=== PATIENT | female | born 1935 | race American Indian/Alaskan Native ===

== ENCOUNTER 2018-04-06 21:47 | Inpatient (IN) | payer MEDICARE ==
[2018-04-06 21:48] VITALS: BMI 33.7
[2018-04-06 22:02] VITALS: RESP 20
--- NOTE | 2018-04-06 22:28 | C.PDOC ---
History Of Present Illness 82 year old female with PMHx of Colon CA, CVA presents to the ED c/o intermittent abdominal pain associated with watery diarrhea for the past 2-3 weeks. Patient reports she had surgery for her colon cancer on November. Patient states she saw her PMD on February, reports that after that visit she has been having urinary incontinence. Patient states that every time she moves urine comes out. Patient denies fever, chills, nausea, vomit, dysuria, back pain, rash, weakness, numbness. Time Seen by Provider: 04/06/18 22:01 Chief Complaint (Nursing): Abdominal Pain History Per: Patient History/Exam Limitations: no limitations Onset/Duration Of Symptoms: Days, Intermittent Episodes Current Symptoms Are (Timing): Still Present Location Of Pain/Discomfort: Diffuse Quality Of Discomfort: "Pain" Associated Symptoms: Diarrhea, Urinary Symptoms. denies: Chills, Vomiting Recent travel outside of the [place]: No Additional History Per: Patient Abnormal Vaginal Bleeding: No Past Medical History Reviewed: Historical Data, Nursing Documentation, Vital Signs Vital Signs: Last Vital Signs Temp 983 F H 04/06/18 21:51 Pulse 63 04/06/18 21:51 Resp 20 04/06/18 21:51 BP 146/80 04/06/18 21:51 Pulse Ox 98 04/06/18 21:51 - Medical History PMH: CVA, Diabetes Other PMH: Colon CA Surgical History: No Surg Hx Denies: Pacemaker - [facility] Procedures CORONAR ARTERIOGR-2 CATH (10/23/13) LEFT HEART CARDIAC CATH (10/23/13) LT HEART ANGIOCARDIOGRAM (10/23/13) Family History: States: Unknown Family Hx - Social History Hx Tobacco Use: No Hx Alcohol Use: No Hx Substance Use: No - Immunization History Hx Tetanus Toxoid Vaccination: No Hx Influenza Vaccination: No Hx Pneumococcal Vaccination: No Review Of Systems Constitutional: Negative for: Fever, Chills Cardiovascular: Negative for: Chest Pain, Palpitations Respiratory: Negative for: Cough, Shortness of Breath Gastrointestinal: Positive for: Abdominal Pain, Diarrhea. Negative for: Nausea, Vomiting Genitourinary: Positive for: Incontinence Musculoskeletal: Negative for: Back Pain Skin: Negative for: Rash Neurological: Negative for: Weakness, Numbness Physical Exam - Physical Exam Appears: Non-toxic, No Acute Distress Skin: Normal Color, Warm, Dry Head: Atraumatic, Normacephalic Eye(s): bilateral: Normal Inspection Oral Mucosa: Moist Neck: Normal ROM, Supple Chest: Symmetrical Cardiovascular: Rhythm Regular Respiratory: Normal Breath Sounds, No Rales, No Rhonchi, No Wheezing Gastrointestinal/Abdominal: Soft, No Tenderness, No Guarding, No Rebound, Other (healed scar ) Extremity: Normal ROM, No Tenderness, No Swelling Neurological/Psych: Oriented x3, Normal Speech, Normal Cognition, Normal Motor, Normal Sensation Gait: Steady ED Course And Treatment - Laboratory Results Result Diagrams: 04/06/18 22:45 04/06/18 22:45 ECG: Interpreted By Me, Viewed By Me Interpretation Of ECG: Paced Rate From EC (BPM) O2 Sat by Pulse Oximetry: 98 (ON RA) Pulse Ox Interpretation: Normal - CT Scan/US CT abd/pelvis Other Rad Studies (CT/US): Read By Radiologist, Radiology Report Reviewed CT/US Interpretation: EXAM: CT Abdomen and Pelvis without IV contrast. CLINICAL HISTORY: Pancreaititis, ho colon ca. TECHNIQUE: Axial computed tomography images of the abdomen and pelvis without intravenous contrast. 0.00 mGy-cm. CONTRAST: Without. COMPARISON: None provided. FINDINGS: LUNG BASES: The visualized lung bases are clear. LIVER: There are a few subcentimeter hypodensities in both lobes of liver, which are too small to adequately characterize. GALLBLADDER AND BILE DUCTS: The gallbladder is predominantly decompressed. PANCREAS: There is minimal stranding near the distal body and tail of the pancreas which could represent a mild acute pancreatitis. Please correlate clinically. SPLEEN: Unremarkable. ADRENAL GLANDS: Unremarkable. KIDNEYS, URETERS, AND BLADDER: Small left midpole renal cyst. There is mild fullness of the left renal collecting system and there is slight hyperdensity of the wall of the proximal left ureter which is also somewhat dilated although tapers more distally. Please correlate for the possibility of any urinary tract infectious, inflammatory or neoplastic process. The bladder is predominately decompressed however appears quite thickwalled. This measures up to 11 mm in thickness. Please correlate for the possibility of infectious, inflammatory or neoplastic process of bladder, or chronic urinary outflow obstruction. STOMACH AND BOWEL: Tiny hiatal hernia. There is evidence for partial prior re section of the right colon with anastomosis in the right lower quadrant appears intact. Constipation is noted in the remaining colon. No evidence for bowel obstruction. APPENDIX: No evidence of acute appendicitis on CT examination. PERITONEUM: No free fluid. No free air. LYMPH NODES: No lymphadenopathy is evident. REPRODUCTIVE: The uterus is atrophic or absent. VASCULATURE: There is coronary artery calcification. There is calcification of the aortic root. Visualized thoracic aorta is tortuous and mildly atherosclerotic. Moderately severe atherosclerotic change of the abdominal aorta and in particular the iliac arteries and branches. BONES: Moderate to severe multilevel degenerative spine changes are present. MISCELLANEOUS: Pacemaker leads are seen extending to right atrium and right ventricle. There are postsurgical changes of running craniocaudally at the anterior abdomen midline. Mild to moderate degenerative changes of both hips and pelvis are noted. IMPRESSION: 1. There is minimal stranding near the distal body and tail of the pancreas which could represent a mild acute pancreatitis. Please correlate clinically. 2. There is mild fullness of the left renal collecting system and there is slight hyperdensity of the wall of the proximal left ureter which is also somewhat dilated although tapers more distally. Please correlate for the possibility of any urinary tract infectious, inflammatory or neoplastic process. 3. The bladder is predominately decompressed however appears quite thickwalled. This measures up to 11 mm in thickness. Please correlate for the possibility of infectious, inflammatory or neoplastic process of bladder, or chronic urinary outflow obstruction. 4. There is evidence for partial prior resection of the right colon with anastomosis in the right lower quadrant appears intact. 5. Constipation is noted in the remaining colon. 6. Additional findings as above. . Electronically signed on Apr 07, 2018 12:20:27 AM EST by: Edwar Fraser M.D., JUNG Certified By ABR & CBCCT. Fellowship Trained MRI and CT Specialist Progress - Re-Evaluation Re-evaluation Note: 04/06/18 23:17 D/W DR GUALLPA AWARE OF ER FINDINGS. PENDING CT 04/06/18 23:34 D/W MED RESIDENT WILL EVAL. WILL FU CT RESULTS - Data Reviewed Data Reviewed: Lab, Diagnostic imaging, EKG, Old records Medical Decision Making Medical Decision Making: Plan: * CT abd/pelvis * Labs * UA Disposition Counseled Patient/Family Regarding: Studies Performed, Diagnosis - Disposition Disposition: HOSPITALIZED Disposition Time: 23:53 Condition: STABLE - POA Present On Arrival: None - Clinical Impression Clinical Impression: Abdominal pain, Pancreatitis, UTI (urinary tract infection) - Scribe Statement The provider has reviewed the documentation as recorded by the Scribe Ac Norris All medical record entries made by the Scribe were at my direction and personally dictated by me. I have reviewed the chart and agree that the record accurately reflects my personal performance of the history, physical exam, medical decision making, and the department course for this patient. I have also personally directed, reviewed, and agree with the discharge instructions and disposition.
[2018-04-06 22:47] LABS: BASO % 0.4 % (0.0-2.0); EOS % 0.7 % (0.0-4.0); HEMOGLOBIN 10.4 g/dL (11.0-16.0); MEAN CELL VOLUME 77.2 fL (81.0-99.0); MEAN CORPUSCULAR HEMOGLOBIN 25.2 pg (27.0-31.0); MEAN CORPUSCULAR HGB CONC 32.6 g/dL (33.0-37.0); MEAN PLATELET VOLUME 7.4 fL (7.2-11.7); MONO # 0.5 K/uL (0.0-0.8); MONO % 8.6 % (0.0-10.0); NEUT # 4.5 K/uL (1.8-7.0); NEUT % 73.3 % (50.0-75.0); RBC 4.13 Mil/uL (3.80-5.20); RED CELL DISTRIBUTION WIDTH 16.3 % (11.5-14.5); WHITE BLOOD COUNT 6.1 K/uL (4.8-10.8)
[2018-04-06 22:59] LABS: ALB/GLOB RATIO 0.9 (1.0-2.1); ALBUMIN 4.1 g/dL (3.5-5.0); CALCIUM 9.7 mg/dl (8.6-10.4)
[2018-04-06 23:08] LABS: SQUAMOUS EPITHIAL 6 /hpf (0-5); URINE BACTERIA MOD (<OCC); URINE BILIRUBIN NEGATIVE (NEGATIVE); URINE BLOOD 2+ (NEGATIVE); URINE CLARITY Turbid (Clear); URINE COLOR Yellow (YELLOW); URINE GLUCOSE (UA) 1+ mg/dL (Normal); URINE LEUKOCYTE ESTERASE 3+ Leu/uL (Negative); URINE PROTEIN 2+ mg/dL (NEGATIVE); URINE UROBILINOGEN NORMAL mg/dL (0.2-1.0)
[2018-04-06] MEDS ORDERED: Iodixanol 320 MG/ML 100 ML BOTTLE IV ONE (23:25)
[2018-04-07] MEDS ORDERED: cefTRIAXone IV 1 gm in Dextros 50 ML IVPB STA (00:28)
--- NOTE | 2018-04-07 01:18 | CP.PCM.HP ---
History of Present Illness - History of Present Illness History of Present Illness: PGY1 Medicine H and P for Dr. Hoyt This is an 82 year old female with PMH of colon CA treated with colectomy, uterine CA treated with radiation and total hysterectomy, CVA with residual left hand weakness, CAD with stent placed 5 years ago, PM placed 2 years ago, NIDDM2 who presents with a 2 week history of worsening abdominal pain. Abdominal pain is described as diffuse, pressure like, intermittent, worse with certain positional movements. She also reports increased urinary frequency for the past 2 months. She states that when she sneezes, coughs, or moves in certain positions, she urinates on herself. She states that she has had to wear diapers because of this, also because she has had loose bowel movements since having the colectomy in December 2017. Denies fever, chills, chest pain, palpitations, vomiting, hematochezia, melena, syncope, dizziness, visual changes, new weakness. She also endorses SOB since having her PM placed, due to a "lung puncture." Currently, she reports she feels fine and has no complaints. Pt presents with her daughter, Rosie and grandson/caretake Fredy. PMD: [facility]: Dr. Wilfredo Botello PMH: colon CA diagnosed and treated with colectomy in December 2017, uterine CA treated with radiation and total hysterectomy, CVA with residual left hand weakness, CAD with stent placed 5 years ago, PM placed 2 years ago, NIDDM2 PSH: PM, Colectomy as above, total hysterectomy 30 years ago Meds: Brillinta 60 mg po BID, Donepazil 5 mg PO QHS, Glimepiride 4 mg PO BID, Amlodipine 10 mg PO QD. Pt has a bottle for Metoprolol 100 mg PO BID, but referral clerk states she doesn't take it. Allx: ASA (itchiness) SHx: uses a rolling walker to get around for the past 2-3 years. Denies drugs, etoh or smoking. Present on Admission - Present on Admission Any Indicators Present on Admission: No Review of Systems - Review of Systems All systems: reviewed and no additional remarkable complaints except (as per HPI) Past Patient History - Past Social History Smoking Status: Never Smoked - CARDIAC Hx Pacemaker: No - NEUROLOGICAL Hx Paralysis: No - HEMATOLOGICAL/ONCOLOGICAL Hx Blood Transfusions: No Hx Blood Transfusion Reaction: No - MUSCULOSKELETAL/RHEUMATOLOGICAL Hx Musculoskeletal Disorders: No - PSYCHIATRIC Hx Substance Use: No - SURGICAL HISTORY Hx Surgeries: Yes - ANESTHESIA Hx Anesthesia Reactions: Yes Hx Malignant Hyperthermia: No Meds Allergies/Adverse Reactions: Allergies Allergy/AdvReac Type Severity Reaction Status Date / Time aspirin Allergy Verified 04/06/18 23:28 Physical Exam - Constitutional Appears: Non-toxic, No Acute Distress - Head Exam Head Exam: ATRAUMATIC, NORMAL INSPECTION - Eye Exam Eye Exam: EOMI, Normal appearance - ENT Exam ENT Exam: Mucous Membranes Dry - Respiratory Exam Respiratory Exam: Clear to Auscultation Bilateral. absent: Chest Wall Tenderness, Decreased Breath Sounds, Rales, Rhonchi, Wheezes, Stridor - Cardiovascular Exam Cardiovascular Exam: REGULAR RHYTHM, +S1, +S2 Additional comments: PM left chest wall - GI/Abdominal Exam GI & Abdominal Exam: Guarding (voluntary), Normal Bowel Sounds, Soft, Tenderness (diffuse abdominal tenderness). absent: Distended, Firm, Rebound, Rigid Additional comments: well healed surgical scars negative murphys sign - Extremities Exam Extremities exam: Positive for: normal capillary refill, normal inspection, pedal pulses present. Negative for: calf tenderness, pedal edema - Back Exam Back exam: NORMAL INSPECTION. absent: CVA tenderness (L), CVA tenderness (R) - Neurological Exam Neurological exam: Alert, Oriented x3 - Psychiatric Exam Psychiatric exam: Normal Affect, Normal Mood - Skin Skin Exam: Dry, Normal Color, Warm Results - Vital Signs Recent Vital Signs: Last Vital Signs Temp 98.6 F 04/07/18 00:27 Pulse 88 04/07/18 00:27 Resp 20 04/07/18 00:27 BP 158/63 H 04/07/18 00:27 Pulse Ox 98 04/07/18 00:43 - Labs Result Diagrams: 04/06/18 22:45 04/06/18 22:45 Labs: Laboratory Results - last 24 hr 04/06/18 04/06/18 04/06/18 22:16 22:45 22:45 WBC 6.1 D RBC 4.13 Hgb 10.4 L Hct 31.9 L MCV 77.2 L D MCH 25.2 L MCHC 32.6 L RDW 16.3 H Plt Count 423 H D MPV 7.4 Neut % (Auto) 73.3 Lymph % (Auto) 17.0 L [place] % (Auto) 8.6 Eos % (Auto) 0.7 Baso % (Auto) 0.4 Neut # (Auto) 4.5 Lymph # (Auto) 1.0 [place] # (Auto) 0.5 Eos # (Auto) 0.0 Baso # (Auto) 0.0 Sodium 138 Potassium 4.3 Chloride 103 Carbon Dioxide 22 Anion Gap 17 BUN 17 Creatinine 1.1 Est GFR ( Amer) 57 Est GFR (Non-Af Amer) 47 POC Glucose (mg/dL) 273 H Random Glucose 271 H D Calcium 9.7 Total Bilirubin 0.5 AST 25 ALT 11 Alkaline Phosphatase 181 H Total Protein 8.6 H Albumin 4.1 Globulin 4.4 H Albumin/Globulin Ratio 0.9 L Lipase 2665 H Urine Color Urine Clarity Urine pH Ur Specific [place] Urine Protein Urine Glucose (UA) Urine Ketones Urine Blood Urine Nitrate Urine Bilirubin Urine Urobilinogen Ur Leukocyte Esterase Urine WBC (Auto) Urine RBC (Auto) Ur Squamous Epith Cells Urine Bacteria 04/06/18 22:59 WBC RBC Hgb Hct MCV MCH MCHC RDW Plt Count MPV Neut % (Auto) Lymph % (Auto) [place] % (Auto) Eos % (Auto) Baso % (Auto) Neut # (Auto) Lymph # (Auto) [place] # (Auto) Eos # (Auto) Baso # (Auto) Sodium Potassium Chloride Carbon Dioxide Anion Gap BUN Creatinine Est GFR ( Amer) Est GFR (Non-Af Amer) POC Glucose (mg/dL) Random Glucose Calcium Total Bilirubin AST ALT Alkaline Phosphatase Total Protein Albumin Globulin Albumin/Globulin Ratio Lipase Urine Color Yellow Urine Clarity Turbid Urine pH 5.0 Ur Specific [place] 1.012 Urine Protein 2+ H Urine Glucose (UA) 1+ Urine Ketones Negative Urine Blood 2+ H Urine Nitrate Negative Urine Bilirubin Negative Urine Urobilinogen Normal Ur Leukocyte Esterase 3+ H Urine WBC (Auto) 1020 H Urine RBC (Auto) 3 Ur Squamous Epith Cells 6 H Urine Bacteria Mod H Assessment & Plan - Assessment and Plan (Free Text) Assessment: This is an 82 year old female with PMH of colon CA treated with colectomy, uterine CA treated with radiation and total hysterectomy, CVA with residual left hand weakness, CAD with stent placed 5 years ago, PM placed 2 years ago, NIDDM2 who presents with a 2 week history of worsening abdominal pain. She also reports increased urinary frequency for the past 2 months. Plan: Pancreatitis Abdominal/Pelvic CT without contrast shows 1. There is minimal stranding near the distal body and tail of the pancreas which could represent a mild acute pancreatitis. 2. There is mild fullness of the left renal collecting system and there is slight hyperdensity of the wall of the proximal left ureter which is also somewhat dilated although tapers more distally. Please correlate for the possibility of any urinary tract infectious, inflammatory or neoplastic process. 3. The bladder is predominately decompressed however appears quite thickwalled. This measures up to 11 mm in thickness. Please correlate for the possibility of infectious, inflammatory or neoplastic process of bladder, or chronic urinary outflow obstruction. 4. There is evidence for partial prior resection of the right colon with anastomosis in the right lower quadrant appears intact. 5. Constipation is noted in the remaining colon. F/u official report Lipase is 2665 NPO except meds LR at 150 mL/hr LFTs are normal on admission BUN/Cr is 17/1.1 on admission Morphine 2 mg IVP prn pain F/u LDH UTI UA shows 3+ leukocyte esterase, 1020 WBC Treated with Rocephin 1 g IVPB in the ED Will give Rocephin 1g IVPB Q24h x 2 more doses F/u culture and sensitivity Anemia, microcytic H/H is 10.4/31.9 MCV is 77.2 F/u Iron, TIBC, %sat, ferritin, FOBT Hx of CAD Continue home brillinta 60 mg PO BID Pt with allergy to ASA Coreg 3.125 mg PO BID Crestor 5 mg PO QHS Hx of CVA Pt is on Brillinta 60 mg PO QID Crestor 5 mg PO QHS F/u Lipid panel Hx NIDDM2 Hold home meds RISS q6h Accucheck q6 F/u HgbA1c PPx: No indication for GI ppx Pt on brillinta NPO PT/OT eval Case discussed with Dr. Hoyt All medical management as per Dr. Hoyt
[2018-04-07] MEDS ORDERED: Glucagon Recombinant 1 mg Inj IM PRN (02:23)
[2018-04-07] MEDS ORDERED: Dextrose 50% SYRINGE Inj (50 ml) IV PRN (02:23)
[2018-04-07] MEDS ORDERED: (Novolin R) Insulin Human Regular 100 units/ml vial SC SCH (02:30)
[2018-04-07] MEDS: Lactated Ringer's 1,000 ML IV SCH ×4 (03:28→19:06)
[2018-04-07] MEDS: (Novolin R) Insulin Human Regular 100 units/ml vial SC SCH ×3 (06:07→18:00)
[2018-04-07 08:43] LABS: BASO % 0.4 % (0.0-2.0); EOS # 0.1 K/uL (0.0-0.7); EOS % 1.3 % (0.0-4.0); HEMOGLOBIN 9.4 g/dL (11.0-16.0); LYMPH # 1.1 K/uL (1.0-4.3); LYMPH % 19.9 % (20.0-40.0); MEAN CELL VOLUME 77.3 fL (81.0-99.0); MEAN CORPUSCULAR HEMOGLOBIN 25.1 pg (27.0-31.0); MEAN CORPUSCULAR HGB CONC 32.5 g/dL (33.0-37.0); MEAN PLATELET VOLUME 7.6 fL (7.2-11.7); MONO # 0.6 K/uL (0.0-0.8); MONO % 10.2 % (0.0-10.0); NEUT # 3.9 K/uL (1.8-7.0); NEUT % 68.2 % (50.0-75.0); NRBC % 0.1 % (0.0-2.0); RBC 3.74 Mil/uL (3.80-5.20); RED CELL DISTRIBUTION WIDTH 15.8 % (11.5-14.5); WHITE BLOOD COUNT 5.7 K/uL (4.8-10.8)
[2018-04-07 08:55] LABS: ALBUMIN 3.5 g/dL (3.5-5.0); ALT/SGPT 12 U/L (9-52); AST/SGOT 27 U/L (14-36); BLOOD UREA NITROGEN 15 mg/dL (7-17); CALCIUM 8.9 mg/dl (8.6-10.4); GFR NON-AFRICAN AMERICAN > 60; HDL CHOLESTEROL 35 mg/dL (30-70); IRON < 10 ug/dL (37-170)
[2018-04-07 09:04] LABS: LDL CHOLESTEROL 64 mg/dL (0-129)
[2018-04-07 09:06] LABS: % IRON SATURATION < 4.3 (20-55); TOTAL IRON BINDING CAPACITY 233 ug/dL (250-450)
[2018-04-07 09:24] LABS: FERRITIN 87.3 ng/mL
--- NOTE | 2018-04-07 13:33 | CT ---
Date of service: 04/06/2018 PROCEDURE: CT Abdomen and pelvis HISTORY: Abdominal pain COMPARISON: Comparison made with prior CT scan abdomen pelvis 02/05/2013 TECHNIQUE: Contiguous axial images of the abdomen and pelvis performed of without oral or intravenous contrast material. Two additional 2D sagittal and coronal reformats generated. Reformats generated. Radiation dose: Total exam DLP = 939.34 mGy-cm. This CT exam was performed using one or more of the following dose reduction techniques: Automated exposure control, adjustment of the mA and/or kV according to patient size, and/or use of iterative reconstruction technique. FINDINGS: Streak and beam hardening artifact arising from the left upper extremity which has not been moved from the field of view obscures some detail in the upper sections. LOWER THORAX: Heart is upper limits of normal.. No significant pericardial effusion. There is a small hiatal hernia. Lung bases clear with no evidence of infiltrate or basilar pneumothorax LIVER: Unremarkable. No gross ductal dilatation. Redemonstrated is a small low lesion posterior superior aspect right lobe liver abutting the posterolateral aspect of the right hemidiaphragm. Additional tiny foci scattered that were seen scattered throughout hepatic parenchyma prior study a not well seen on this exam due to the lack of circulating intravenous contrast material. GALLBLADDER AND BILE DUCTS: Unremarkable. PANCREAS: Unremarkable. No mass. No ductal dilatation. SPLEEN: Unremarkable. No splenomegaly. There is a small splenule adjacent to the posterior main body of the spleen. ADRENALS: Slightly prominent/nodular appearing adrenal glands. KIDNEYS AND URETERS: There is a 2.0 cm partially exophytic cyst arising from the posterolateral cortex midpole left kidney.. Mild dilatation of the left renal pelvis and left ureter with slight wall thickening. Rule out ascending UTI versus invasive urothelial lesion. Urologic consultation suggested.. Mild infiltration changes in the left perinephric fat also present. BLADDER: Urinary bladder is incompletely distended with marked thick-walled appearance. Rule out cystitis or other intrinsic/invasive wall lesion. REPRODUCTIVE: Hysterectomy.. APPENDIX: Appendix is not positively identified however no obvious inflammatory changes seen in the right lower quadrant of the abdomen. BOWEL: Evaluation of the bowel is limited due to the lack of oral contrast material. Stomach is incompletely distended. Visualized loops of small bowel exhibit relatively normal contour and caliber. No evidence of acute mechanical small bowel obstruction. There is an anastomosis seen in the region of the upper right colon-hepatic flexure region which is locally distended. Findings suggest partial right hemicolectomy however clinical correlation with surgical history recommended.. There are a few colonic diverticula seen along the sigmoid colon however no radiographic evidence of acute diverticulitis. PERITONEUM: There appears to be a mild presacral infiltration/thickening nonspecific.. No free air. LYMPH NODES: Unremarkable. No enlarged lymph nodes. VASCULATURE: Unremarkable. No aortic aneurysm. Mild aortic atherosclerotic calcification or mural plaque present. BONES: Multilevel degenerative spondylosis of the lower thoracic and lumbar spine.. There are scattered lucencies seen throughout the lower thoracic and lumbar spine most of which appear to represent subchondral cystic changes. However clinical correlation recommended. Degenerative changes both hip joints. OTHER FINDINGS: None. IMPRESSION: Study is slightly limited due to streak and beam hardening artifact arising from the left upper extremity which has not been moved from the field of view There is marked bladder wall thickening; rule out infectious of versus neoplastic process. There is also mild dilatation of the left renal pelvis and left ureter which also exhibits urothelial thickening; again ascending infectious process or neoplasia must be considered. Urologic consultation is recommended for further evaluation.. Small partially exophytic cyst left kidney. Apparent partial right hemicolectomy with an anastomosis seen in the region the hepatic flexure which is also locally dilated. Diverticulosis without radiographic evidence of acute diverticulitis. Mild presacral soft tissue infiltration/thickening nonspecific. Clinical correlation recommended. Redemonstrated is a small low lesion posterior superior aspect right lobe liver abutting the posterolateral aspect of the right hemidiaphragm. Additional tiny foci scattered that were seen scattered throughout hepatic parenchyma prior study a not well seen on this exam due to the lack of circulating intravenous contrast material. Small splenule.
--- NOTE | 2018-04-07 15:04 | CP.PCM.PN ---
Subjective - Date & Time of Evaluation Date of Evaluation: 04/07/18 Time of Evaluation: 15:01 - Subjective Subjective: Manjit Simons PGY1 Progress Note for Dr. Hoyt Pt was examined at bedside this morning. She reports improvement in her abdominal pain. She denies nausea, vomiting, dysuria. She reports some diarrhea. Objective - Vital Signs/Intake and Output Vital Signs (last 24 hours): Temp Pulse Resp BP Pulse Ox 97.8 F 87 20 141/77 98 04/07/18 00:40 04/07/18 00:40 04/07/18 00:40 04/07/18 00:40 04/07/18 00:43 - Medications Medications: Current Medications Amlodipine Besylate (Norvasc) 10 mg PO DAILY [facility] Last Admin: 04/07/18 10:10 Dose: 10 mg Carvedilol (Coreg) 3.125 mg PO BID [facility] Last Admin: 04/07/18 10:10 Dose: 3.125 mg Dextrose (Dextrose 50% Inj) 0 ml IV STAT PRN; Protocol PRN Reason: Hypoglycemia Protocol Dextrose (Glutose 15) 0 gm PO ONCE PRN; Protocol PRN Reason: Hypoglycemia Protocol Donepezil HCl (Aricept) 5 mg PO HS [facility] Glucagon (Glucagen Diagnostic Kit) 0 mg IM STAT PRN; Protocol PRN Reason: Hypoglycemia Protocol Ceftriaxone Sodium 1 gm/ (Sodium Chloride) 100 mls @ 100 mls/hr IVPB DAILY [facility]; Protocol Stop: 04/08/18 10:59 Last Admin: 04/07/18 10:09 Dose: 100 mls/hr Dextrose (Dextrose 5% In Water 1000 Ml) 1,000 mls @ 0 mls/hr IV .Q0M PRN; Protocol PRN Reason: Hypoglycemia Protocol Lactated Ringer's (Lactated Ringer's) 1,000 mls @ 150 mls/hr IV .Q6H40M [facility] Last Admin: 04/07/18 10:11 Dose: 150 mls/hr Insulin Human Regular (Novolin R) 0 unit SC Q6 [facility]; Protocol Last Admin: 04/07/18 11:31 Dose: Not Given Morphine Sulfate (Morphine) 2 mg IVP Q4 PRN PRN Reason: Pain, moderate (4-7) Last Admin: 04/07/18 03:49 Dose: 2 mg Pneumococcal Polyvalent Vaccine (Pneumovax 23 Vaccine) 0.5 ml IM .ONCE ONE Stop: 04/10/18 10:01 Rosuvastatin Calcium (Crestor) 5 mg PO HS [facility] Ticagrelor (Brilinta) 60 mg PO BID [facility] Last Admin: 04/07/18 10:10 Dose: 60 mg - Labs Labs: 04/07/18 08:15 04/07/18 08:15 - Constitutional Appears: Well, No Acute Distress - Head Exam Head Exam: ATRAUMATIC, NORMOCEPHALIC - Eye Exam Eye Exam: EOMI, Normal appearance, PERRL Pupil Exam: NORMAL ACCOMODATION - ENT Exam ENT Exam: Mucous Membranes Moist - Respiratory Exam Respiratory Exam: Clear to Ausculation Bilateral, NORMAL BREATHING PATTERN - Cardiovascular Exam Cardiovascular Exam: REGULAR RHYTHM, +S1, +S2. absent: Gallop, Rubs, Murmur - GI/Abdominal Exam GI & Abdominal Exam: Soft, Normal Bowel Sounds. absent: Distended, Tenderness - Extremities Exam Extremities Exam: Normal Inspection - Back Exam Back Exam: absent: CVA tenderness (L), CVA tenderness (R) - Neurological Exam Neurological Exam: Alert, Awake, Oriented x3 - Psychiatric Exam Psychiatric exam: Normal Affect, Normal Mood - Skin Skin Exam: Normal Color Assessment and Plan - Assessment and Plan (Free Text) Assessment: This is an 82 year old female with PMH of colon CA treated with colectomy, uterine CA treated with radiation and total hysterectomy, CVA with residual left hand weakness, CAD with stent placed 5 years ago, PM placed 2 years ago, NIDDM2 who presents with a 2 week history of worsening abdominal pain. She also reports increased urinary frequency for the past 2 months. Plan: Abdominal Pain pancreatitis Abdominal/Pelvic CT w/o contrast: slight bladder wall thickening. mild dilation of L renal pelvis. diverticulosis without evidence of diverticulitis. mild perisacral soft tissue infiltrates/thickening. small low lesion on posterior R lobe of liver Lipase is 2665 NPO except meds LR at 150 mL/hr LFTs are normal on admission BUN/Cr is 17/1.1 on admission Morphine 2 mg IVP prn pain LDH wnl UTI UA shows 3+ leukocyte esterase, 1020 WBC, dirty catch Treated with Rocephin 1 g IVPB in the ED Will give Rocephin 1g IVPB Q24h x 2 more doses F/u culture and sensitivity Anemia, microcytic H/H is 9.4/28.9 MCV is 77.2 low iron, low TIBC, low %sat Hx of CAD Continue home brillinta 60 mg PO BID Pt with allergy to ASA Coreg 3.125 mg PO BID Crestor 5 mg PO QHS Hx of CVA Pt is on Brillinta 60 mg PO QID Crestor 5 mg PO QHS lipids wnl Hx NIDDM2 Hold home meds RISS q6h Accucheck q6 HgbA1c 9.7 PPx: No indication for GI ppx Pt on brillinta NPO PT/OT eval Case discussed with Dr. Hoyt
--- NOTE | 2018-04-07 16:23 | RAD ---
Date of service: 04/06/2018 HISTORY: PANCREATITIS HO COLON CA COMPARISON: Comparison chest 02/05/2013. FINDINGS: LUNGS: No active pulmonary disease. Right paratracheal density felt to represent slightly ectatic great vessels PLEURA: No significant pleural effusion identified, no pneumothorax apparent. CARDIOVASCULAR: Minimal aortic atherosclerotic calcification present. Normal cardiac size. No pulmonary vascular congestion. Interval placement bipolar pacemaker OSSEOUS STRUCTURES: No significant abnormalities. VISUALIZED UPPER ABDOMEN: Normal. OTHER FINDINGS: None. IMPRESSION: No active disease.
[2018-04-08] MEDS: (Novolin R) Insulin Human Regular 100 units/ml vial SC SCH ×5 (00:05→23:57)
[2018-04-08] MEDS: Lactated Ringer's 1,000 ML IV SCH ×4 (01:30→16:00)
[2018-04-08 08:23] LABS: HEMOGLOBIN 9.1 g/dL (11.0-16.0); MEAN CELL VOLUME 77.7 fL (81.0-99.0); MEAN CORPUSCULAR HEMOGLOBIN 24.9 pg (27.0-31.0); MEAN CORPUSCULAR HGB CONC 32.1 g/dL (33.0-37.0); MEAN PLATELET VOLUME 7.4 fL (7.2-11.7); NEUT % 67.9 % (50.0-75.0); RBC 3.64 Mil/uL (3.80-5.20); RED CELL DISTRIBUTION WIDTH 16.3 % (11.5-14.5)
[2018-04-08 08:24] LABS: BASO % 0.5 % (0.0-2.0); EOS # 0.1 K/uL (0.0-0.7); EOS % 1.6 % (0.0-4.0); LYMPH % 19.8 % (20.0-40.0); MONO # 0.5 K/uL (0.0-0.8); MONO % 10.2 % (0.0-10.0); NEUT # 3.4 K/uL (1.8-7.0)
[2018-04-08 08:33] LABS: ALB/GLOB RATIO 0.9 (1.0-2.1); ALBUMIN 3.2 g/dL (3.5-5.0); ALT/SGPT 16 U/L (9-52); AST/SGOT 21 U/L (14-36); BLOOD UREA NITROGEN 9 mg/dL (7-17); CALCIUM 8.8 mg/dl (8.6-10.4); GFR NON-AFRICAN AMERICAN > 60
--- NOTE | 2018-04-08 08:34 | CP.PCM.PN ---
Subjective - Date & Time of Evaluation Date of Evaluation: 04/08/18 Time of Evaluation: 08:31 - Subjective Subjective: Manjit Simons PGY1 Progress Note for Dr. Hoyt Pt was examined at bedside this morning. She reports continuation of her abdominal pain which she describes as fullness due to lack of bowel movements. At home she typically has bowel movements every 3 days. She feels pressure in her abdomen due to the constipation. Patient says she does not have an appetite at this time. Objective - Vital Signs/Intake and Output Vital Signs (last 24 hours): Temp Pulse Resp BP Pulse Ox 98.1 F 79 20 148/86 100 04/08/18 00:00 04/08/18 00:00 04/08/18 00:00 04/08/18 00:00 04/08/18 00:00 Intake and Output: 04/08/18 04/08/18 06:59 18:59 Intake Total 1200 Balance 1200 - Medications Medications: Current Medications Amlodipine Besylate (Norvasc) 10 mg PO DAILY [facility] Last Admin: 04/07/18 10:10 Dose: 10 mg Carvedilol (Coreg) 3.125 mg PO BID [facility] Last Admin: 04/07/18 17:30 Dose: 3.125 mg Dextrose (Dextrose 50% Inj) 0 ml IV STAT PRN; Protocol PRN Reason: Hypoglycemia Protocol Dextrose (Glutose 15) 0 gm PO ONCE PRN; Protocol PRN Reason: Hypoglycemia Protocol Docusate Sodium (Colace) 100 mg PO BID [facility] Donepezil HCl (Aricept) 5 mg PO HS [facility] Last Admin: 04/07/18 21:17 Dose: 5 mg Glucagon (Glucagen Diagnostic Kit) 0 mg IM STAT PRN; Protocol PRN Reason: Hypoglycemia Protocol Ceftriaxone Sodium 1 gm/ (Sodium Chloride) 100 mls @ 100 mls/hr IVPB DAILY [facility]; Protocol Stop: 04/08/18 10:59 Last Admin: 04/07/18 10:09 Dose: 100 mls/hr Dextrose (Dextrose 5% In Water 1000 Ml) 1,000 mls @ 0 mls/hr IV .Q0M PRN; Protocol PRN Reason: Hypoglycemia Protocol Lactated Ringer's (Lactated Ringer's) 1,000 mls @ 150 mls/hr IV .Q6H40M [facility] Last Admin: 04/08/18 01:30 Dose: 150 mls/hr Insulin Human Regular (Novolin R) 0 unit SC Q6 [facility]; Protocol Last Admin: 04/08/18 06:52 Dose: Not Given Morphine Sulfate (Morphine) 2 mg IVP Q4 PRN PRN Reason: Pain, moderate (4-7) Last Admin: 04/07/18 16:06 Dose: 2 mg Pneumococcal Polyvalent Vaccine (Pneumovax 23 Vaccine) 0.5 ml IM .ONCE ONE Stop: 04/10/18 10:01 Rosuvastatin Calcium (Crestor) 5 mg PO HS [facility] Last Admin: 04/07/18 21:17 Dose: 5 mg Ticagrelor (Brilinta) 60 mg PO BID [facility] Last Admin: 04/07/18 17:30 Dose: 60 mg - Labs Labs: 04/08/18 08:05 04/07/18 08:15 - Additional Findings Additional findings: - Constitutional Appears: Well, No Acute Distress - Head Exam Head Exam: ATRAUMATIC, NORMOCEPHALIC - Eye Exam Eye Exam: EOMI, Normal appearance, PERRL Pupil Exam: NORMAL ACCOMODATION - ENT Exam ENT Exam: Mucous Membranes Moist - Respiratory Exam Respiratory Exam: Clear to Ausculation Bilateral, NORMAL BREATHING PATTERN - Cardiovascular Exam Cardiovascular Exam: REGULAR RHYTHM, +S1, +S2. absent: Gallop, Rubs, Murmur - GI/Abdominal Exam GI & Abdominal Exam: Soft, Normal Bowel Sounds. absent: Distended, Tenderness - Extremities Exam Extremities Exam: Normal Inspection - Back Exam Back Exam: absent: CVA tenderness (L), CVA tenderness (R) - Neurological Exam Neurological Exam: Alert, Awake, Oriented x3 - Psychiatric Exam Psychiatric exam: Normal Affect, Normal Mood - Skin Skin Exam: Normal Color Assessment and Plan - Assessment and Plan (Free Text) Assessment: This is an 82 year old female with PMH of colon CA treated with colectomy, uterine CA treated with radiation and total hysterectomy, CVA with residual left hand weakness, CAD with stent placed 5 years ago, PM placed 2 years ago, NIDDM2 who presents with a 2 week history of worsening abdominal pain. She also reports increased urinary frequency for the past 2 months. Plan: Abdominal Pain pancreatitis Abdominal/Pelvic CT w/o contrast: slight bladder wall thickening. mild dilation of L renal pelvis. diverticulosis without evidence of diverticulitis. mild perisacral soft tissue infiltrates/thickening. small low lesion on posterior R lobe of liver Lipase is 2665 CLD, advance as tolerated LR at 150 mL/hr Morphine 2 mg IVP prn pain Colace 100mg PO BID LDH wnl UTI UA shows 3+ leukocyte esterase, 1020 WBC, dirty catch Rocephin 1g IVPB Q24h x 2 more doses UCx: gram neg rods Anemia, microcytic H/H is 9.1/28.3 MCV is 77.2 low iron, low TIBC, low %sat Hx of CAD Continue home brillinta 60 mg PO BID Pt with allergy to ASA Coreg 3.125 mg PO BID Crestor 5 mg PO QHS Hx of CVA Pt is on Brillinta 60 mg PO QID Crestor 5 mg PO QHS lipids wnl Hx NIDDM2 Hold home meds RISS q6h Accucheck ACHS HgbA1c 9.7 PPx: No indication for GI ppx Pt on brillinta CLD PT/OT eval Case discussed with Dr. Hoyt
--- NOTE | 2018-04-08 22:38 | CARD ---
APPROVED REPORT Date of service: 04/07/2018 EKG Measurement Heart [id number] <Conclusion> Technically limited Probably normal sinus with ventricular demand pacing and rare av pacing. 5 beat run of svt. Advise repeat ecg Abnormal ECG
[2018-04-09] MEDS: (Novolin R) Insulin Human Regular 100 units/ml vial SC SCH ×3 (06:18→12:25)
[2018-04-09 07:42] LABS: BASO % 0.2 % (0.0-2.0); EOS # 0.1 K/uL (0.0-0.7); EOS % 1.8 % (0.0-4.0); HEMOGLOBIN 9.4 g/dL (11.0-16.0); LYMPH # 0.9 K/uL (1.0-4.3); LYMPH % 20.3 % (20.0-40.0); MEAN CELL VOLUME 76.9 fL (81.0-99.0); MEAN CORPUSCULAR HEMOGLOBIN 24.9 pg (27.0-31.0); MEAN CORPUSCULAR HGB CONC 32.4 g/dL (33.0-37.0); MEAN PLATELET VOLUME 7.5 fL (7.2-11.7); MONO # 0.4 K/uL (0.0-0.8); NEUT # 3.2 K/uL (1.8-7.0); NEUT % 69.7 % (50.0-75.0); NRBC % 0.1 % (0.0-2.0); RBC 3.76 Mil/uL (3.80-5.20); RED CELL DISTRIBUTION WIDTH 16.3 % (11.5-14.5); WHITE BLOOD COUNT 4.6 K/uL (4.8-10.8)
[2018-04-09 08:46] LABS: ALB/GLOB RATIO 0.9 (1.0-2.1); ALBUMIN 3.1 g/dL (3.5-5.0); ALT/SGPT 17 U/L (9-52); AST/SGOT 15 U/L (14-36); BLOOD UREA NITROGEN 9 mg/dL (7-17); CALCIUM 8.6 mg/dl (8.6-10.4); GFR NON-AFRICAN AMERICAN > 60
[2018-04-09] MEDS ORDERED: Lidocaine 5% Patch TD SCH (10:00)
[2018-04-09] MEDS: Lactated Ringer's 1,000 ML IV SCH (11:38)
[2018-04-09] MEDS: Magnesium Sulfate 1 gm in D5W 1 GM/100 ML BAG IVPB SCH ×2 (13:00→13:32)
--- NOTE | 2018-04-09 14:40 | CP.PCM.DIS ---
Provider - Provider Date of Admission: 04/06/18 23:53 Attending physician: Casey Hoyt Jr, MD Consults: 04/07/18 10:00 Case Management Referral Routine Comment: Physician Instructions: Reason For Exam: HOME CARE NEEDS Reason for Referral: Discharge Planning Time Spent in preparation of Discharge (in minutes): 70 Diagnosis - Discharge Diagnosis (1) Pancreatitis Status: Acute (2) UTI (urinary tract infection) Status: Acute Hospital Course - Lab Results Lab Results: Micro Results 04/07/18 00:03 Urine,Clean Catch Urine Culture - Final Escherichia Coli 04/07/18 09:22 Blood-Venous Blood Culture - Preliminary NO GROWTH AFTER 48 HOURS 04/07/18 09:22 Blood-Venous Blood Culture - Preliminary NO GROWTH AFTER 48 HOURS Most Recent Lab Values WBC 4.6 K/uL (4.8-10.8) L 04/09/18 07:26 RBC 3.76 Mil/uL (3.80-5.20) L 04/09/18 07:26 Hgb 9.4 g/dL (11.0-16.0) L 04/09/18 07:26 Hct 28.9 % (34.0-47.0) L 04/09/18 07:26 MCV 76.9 fL (81.0-99.0) L 04/09/18 07:26 MCH 24.9 pg (27.0-31.0) L 04/09/18 07:26 MCHC 32.4 g/dL (33.0-37.0) L 04/09/18 07:26 RDW 16.3 % (11.5-14.5) H 04/09/18 07:26 Plt Count 354 K/uL (130-400) 04/09/18 07:26 MPV 7.5 fL (7.2-11.7) 04/09/18 07:26 Neut % (Auto) 69.7 % (50.0-75.0) 04/09/18 07:26 Lymph % (Auto) 20.3 % (20.0-40.0) 04/09/18 07:26 [place] % (Auto) 8.0 % (0.0-10.0) 04/09/18 07:26 Eos % (Auto) 1.8 % (0.0-4.0) 04/09/18 07:26 Baso % (Auto) 0.2 % (0.0-2.0) 04/09/18 07:26 Neut # (Auto) 3.2 K/uL (1.8-7.0) 04/09/18 07:26 Lymph # (Auto) 0.9 K/uL (1.0-4.3) L 04/09/18 07:26 [place] # (Auto) 0.4 K/uL (0.0-0.8) 04/09/18 07:26 Eos # (Auto) 0.1 K/uL (0.0-0.7) 04/09/18 07:26 Baso # (Auto) 0.0 K/uL (0.0-0.2) 04/09/18 07:26 Sodium 137 mmol/L (132-148) 04/09/18 07:26 Potassium 3.6 mmol/L (3.6-5.2) 04/09/18 07:26 Chloride 105 mmol/L (98-107) 04/09/18 07:26 Carbon Dioxide 25 mmol/L (22-30) 04/09/18 07:26 Anion Gap 12 (10-20) 04/09/18 07:26 BUN 9 mg/dL (7-17) 04/09/18 07:26 Creatinine 0.7 mg/dL (0.7-1.2) 04/09/18 07:26 Est GFR ( Amer) > 60 04/09/18 07:26 Est GFR (Non-Af Amer) > 60 04/09/18 07:26 POC Glucose (mg/dL) 286 mg/dL (65-110) H 04/09/18 11:07 Random Glucose 161 mg/dL (65-105) H 04/09/18 07:26 Hemoglobin A1c 9.7 % (4.2-6.5) H 04/07/18 08:15 Calcium 8.6 mg/dl (8.6-10.4) 04/09/18 07:26 Phosphorus 3.7 mg/dL (2.5-4.5) 04/09/18 07:26 Magnesium 1.2 mg/dL (1.6-2.3) L 04/09/18 07:26 Iron < 10 ug/dL (37-170) L 04/07/18 08:15 TIBC 233 ug/dL (250-450) L 04/07/18 08:15 % Saturation < 4.3 (20-55) L 04/07/18 08:15 Ferritin 87.3 ng/mL 04/07/18 08:15 Total Bilirubin 0.3 mg/dL (0.2-1.3) 04/09/18 07:26 AST 15 U/L (14-36) 04/09/18 07:26 ALT 17 U/L (9-52) 04/09/18 07:26 Alkaline Phosphatase 132 U/L (38-126) H 04/09/18 07:26 Lactate Dehydrogenase 456 U/L (313-618) 04/07/18 08:15 Total Protein 6.6 g/dL (6.3-8.3) 04/09/18 07:26 Albumin 3.1 g/dL (3.5-5.0) L 04/09/18 07:26 Globulin 3.5 gm/dL (2.2-3.9) 04/09/18 07:26 Albumin/Globulin Ratio 0.9 (1.0-2.1) L 04/09/18 07:26 Triglycerides 125 mg/dL (0-149) 04/07/18 08:15 Cholesterol 119 mg/dL (0-199) 04/07/18 08:15 LDL Cholesterol Direct 64 mg/dL (0-129) 04/07/18 08:15 HDL Cholesterol 35 mg/dL (30-70) 04/07/18 08:15 Lipase 2665 U/L (23-300) H 04/06/18 22:45 Urine Color Yellow (YELLOW) 04/06/18 22:59 Urine Clarity Turbid (Clear) 04/06/18 22:59 Urine pH 5.0 (5.0-8.0) 04/06/18 22:59 Ur Specific [place] 1.012 (1.003-1.030) 04/06/18 22:59 Urine Protein 2+ mg/dL (NEGATIVE) H 04/06/18 22:59 Urine Glucose (UA) 1+ mg/dL (Normal) 04/06/18 22:59 Urine Ketones Negative mg/dL (NEGATIVE) 04/06/18 22:59 Urine Blood 2+ (NEGATIVE) H 04/06/18 22:59 Urine Nitrate Negative (NEGATIVE) 04/06/18 22:59 Urine Bilirubin Negative (NEGATIVE) 04/06/18 22:59 Urine Urobilinogen Normal mg/dL (0.2-1.0) 04/06/18 22:59 Ur Leukocyte Esterase 3+ Chuck/uL (Negative) H 04/06/18 22:59 Urine WBC (Auto) 1020 /hpf (0-5) H 04/06/18 22:59 Urine RBC (Auto) 3 /hpf (0-3) 04/06/18 22:59 Ur Squamous Epith Cells 6 /hpf (0-5) H 04/06/18 22:59 Urine Bacteria Mod (<OCC) H 04/06/18 22:59 - Hospital Course Hospital Course: Upon Admission: This is an 82 year old female with PMH of colon CA treated with colectomy, uterine CA treated with radiation and total hysterectomy, CVA with residual left hand weakness, CAD with stent placed 5 years ago, PM placed 2 years ago, NIDDM2 who presents with a 2 week history of worsening abdominal pain. Abdominal pain is described as diffuse, pressure like, intermittent, worse with certain positional movements. She also reports increased urinary frequency for the past 2 months. She states that when she sneezes, coughs, or moves in certain positions, she urinates on herself. She states that she has had to wear diapers because of this, also because she has had loose bowel movements since having the colectomy in December 2017. Denies fever, chills, chest pain, palpitations, vomiting, hematochezia, melena, syncope, dizziness, visual changes, new weakness. She also endorses SOB since having her PM placed, due to a "lung puncture." Currently, she reports she feels fine and has no complaints. Lipase was elevated at 2665 Patient was admitted for pancreatitis. Hospital Course: CT abd/pel showed slight bladder wall thickening. mild dilation of L renal pelvis. diverticulosis without evidence of diverticulitis. mild perisacral soft tissue infiltrates/thickening. small low lesion on posterior R lobe of liver. Patient was kept NPO and LR was started. Patient was given medication for pain as needed. Patient's home medications were restarted. UA was + for leukocyte esterase. UCx grew E.coli. patient was started on IV rocephin. Patient's abdominal pain improved. She was started on clear liquid diets, which was advanced as tolerated. Patient was deemed stable for discharge to home. Upon Discharge: Patient was deemed stable for discharge to home with home PT. She was given instructions to follow up with Dr. Hoyt in 2 weeks. She was given prescriptions for home medications and to complete a 5 day course of Macrobid. Patient understood instructions and agreed. Discharge Exam - Head Exam Head Exam: ATRAUMATIC, NORMOCEPHALIC - Eye Exam Eye Exam: EOMI, PERRL Pupil Exam: NORMAL ACCOMODATION - Respiratory Exam Respiratory Exam: Clear to PA & Lateral, NORMAL BREATHING PATTERN. absent: Rales, Rhonchi, Wheezes - Cardiovascular Exam Cardiovascular Exam: REGULAR RHYTHM, +S1, +S2. absent: Gallop, Rubs, Systolic Murmur - GI/Abdominal Exam GI & Abdominal Exam: Normal Bowel Sounds, Soft. absent: Distended, Tenderness - Extremities Exam Extremities exam: normal inspection - Neurological Exam Neurological exam: Alert, Oriented x3 - Psychiatric Exam Psychiatric exam: Normal Affect, Normal Mood - Skin Skin Exam: Normal Color Discharge Plan - Discharge Medications Prescriptions: amLODIPine [Norvasc] 10 mg PO DAILY #30 tab Carvedilol [Coreg] 3.125 mg PO BID #30 tab Donepezil HCl 5 mg PO HS #30 Multivitamin [Daily Multiple Vitamin] 1 each PO DAILY #30 tablet Nitrofurantoin Macrocrystals [Macrobid] 100 mg PO Q12H #10 cap Ticagrelor [Brilinta] 60 mg PO BID #60 tab - Follow Up Plan Condition: STABLE Disposition: HOME/ ROUTINE Instructions: Pancreatitis (DC), Ticagrelor, Carvedilol, Nitrofurantoin, Pancreatitis (DC), Urinary Tract Infection in Women (DC), Urinary Tract Infection in Men (DC), Dysuria (GEN) Additional Instructions: Please follow up with Dr. Hoyt within 2 weeks. Please call [phone] to make an appointment. Please take your medications as prescribed. Please take Macrobid twice a day for 5 days. Please eat soft, bland food. Avoid fried, fatty, or heavy foods. Advance your diet slowly. Drink plenty of water every day. If symptoms recur, please return to the emergency department. Take care and be well. Referrals: Casey Hoyt Jr., MD [Medical Doctor] -
[2018-04-09] MEDS ORDERED: Pneumococcal 23-Valent Vaccine IM ONE (14:45)
[2018-04-09 15:48] VITALS: BP 122/64; PULSE 81; TEMP 97.9; O2SAT 97
== END 2018-04-09 18:09 | disposition home health service (06) | DRG 689 ==
LOC: C.ER 21:47 → C.3T 23:53
PROVIDERS: ADMIT Internal Medicine; ATTEND Internal Medicine
DX: N39.0 Urinary tract infection, site not specified (principal); K85.90 Acute pancreatitis without necrosis or infection, unspecified; B96.20 Unspecified Escherichia coli [E. coli] as the cause of diseases classified elsewhere; I25.10 Atherosclerotic heart disease of native coronary artery without angina pectoris; R32 Unspecified urinary incontinence; E11.9 Type 2 diabetes mellitus without complications; K59.00 Constipation, unspecified; I69.334 Monoplegia of upper limb following cerebral infarction affecting left non-dominant side; Z85.038 Personal history of other malignant neoplasm of large intestine; Z85.42 Personal history of malignant neoplasm of other parts of uterus; Z95.0 Presence of cardiac pacemaker; Z95.5 Presence of coronary angioplasty implant and graft; Z92.3 Personal history of irradiation; Z79.84 Long term (current) use of oral hypoglycemic drugs; Z90.710 Acquired absence of both cervix and uterus; Z90.49 Acquired absence of other specified parts of digestive tract